=== PATIENT | female | born 1985 | race Caucasian/White ===

== ENCOUNTER → 2016-07-29 | Outpatient (CLI) | payer MEDICAID | END | disposition home or self-care (01) | LOC: RAD.S 07-28 10:30 | DX: R10.9 Unspecified abdominal pain (principal); N83.202 Unspecified ovarian cyst, left side ==

== ENCOUNTER 2016-08-27 17:28 | Emergency (ER) | payer MEDICAID ==
--- NOTE | 2016-08-30 10:18 | ER ---
ADMIT: 08/27/2016 RM/LOC: ER [facility] MR#: [id number] [id number] [place], [place] [id number] ALEXANDRA OLSON [address] [place] [address], [place] [address] Emergency Room Report SEX: F AGE: 30 : 1985 DATE: 08/27/2016 ADDENDUM: CHIEF COMPLAINT: Dysuria and flank pain. HISTORY OF PRESENT ILLNESS: This is a 30-year-old female, who comes in with [id number] distress saying she feels like she constantly has to urinate, has to have a bowel movement, complaining of right-sided flank pain radiating to her front. She has also had a little low-grade fever for the last couple days. COURSE IN THE EMERGENCY ROOM: A renal CT was done, it does show a distal 1 mm stone at the UVJ. BMP was normal. Urine showed 1+ protein, 2+ blood, 3+ leukocyte esterase, 18 red blood cells. Culture setup will be done. test is negative. Her white count is 14. I am sending her home with Bactrim DS 1 tab b.i.d. x7 days. She was given Rocephin here in the emergency room. CLINICAL IMPRESSION: 1. Renal colic. 2. Urinary tract infection. DISPOSITION: Stable at discharge. Will follow up if worsens. MARIA DOLORES Vallejo / Osiel Pablo MD / yoshi JOB #: [id number] CC: Brenden Mars MD, Attending Physician Gabi Ocasio MD, Family Physician
== END 2016-08-27 21:15 | disposition home or self-care (01) ==
LOC: ER 17:28
DX: N23 Unspecified renal colic (principal); N39.0 Urinary tract infection, site not specified; Z88.0 Allergy status to penicillin; Z88.1 Allergy status to other antibiotic agents